=== PATIENT | female | born 1980 | race African-American/Black ===

== ENCOUNTER 2017-04-08 20:23 | Emergency (ER) | payer OTHER ==
[~2017-04-08 20:23] MED LIST: DOXYCYCLINE 10100 M1 PO; IBUPROFEN 600600 M1 PO; LUPRON DEPOT3.75 M2 IM; NOHOMEMEDICATIONS
== END 2017-04-08 20:37 | disposition left against medical advice (07) ==
LOC: ER 20:23
DX: Z53.21 Procedure and treatment not carried out due to patient leaving prior to being seen by health care provider (principal)